=== PATIENT | female | born 1965 | race Native Hawaiian/Other Pacific Islander ===

== ENCOUNTER 2019-10-30 07:57 | Outpatient (CLI) | payer OTHER ==
[2019-10-30 08:22] LABS: PLATELET COUNT 204 K/uL (152-353)
[2019-10-30 08:38] LABS: POTASSIUM 4.9 mmol/L (3.6-5.2)
== END 2019-10-30 22:36 | disposition home or self-care (01) ==
LOC: LABW 07:57
PROVIDERS: Internal Medicine
DX: I10 Essential (primary) hypertension (principal); Z98.84 Bariatric surgery status
CPT/HCPCS: 36415; 80053; 80061; 81000; 82306; 82607; 84439; 84443; 85027; 87077; 87086; 87088; 87186

== ENCOUNTER 2019-11-07 12:42 | Outpatient (CLI) | payer OTHER | END 2019-11-07 21:21 | disposition home or self-care (01) | LOC: MAMMO 12:42 | DX: Z12.31 Encounter for screening mammogram for malignant neoplasm of breast (principal); Z13.820 Encounter for screening for osteoporosis ==

== ENCOUNTER 2020-01-12 12:08 | Outpatient (CLI) | payer OTHER | END 2020-01-12 22:58 | disposition home or self-care (01) | LOC: RAD 12:08 | DX: R09.1 Pleurisy (principal) ==